=== PATIENT | female | born 1995 | race Caucasian/White ===

== ENCOUNTER 2018-03-15 23:37 | Emergency (ER) | payer OTHER ==
[2018-03-16 00:48] LABS: BASO % 0.4 % (0.0-1.0); EOS # 0.1 10^3/uL (0.0-0.50); EOS % 1.6 % (0.0-3.0); HEMATOCRIT 37.8 % (36.0-47.0); HEMOGLOBIN 11.5 g/dl (12.0-15.5); IMMATURE GRANULOCYTE % 0.1 % (0-3.0); LYMPH # 2.5 10^3/uL (1.5-6.5); MEAN CORPUSCULAR HEMOGLOBIN 23.8 pg (27.0-33.0); MEAN CORPUSCULAR HGB CONC 30.4 g/dl (32.0-36.5); MEAN CORPUSCULAR VOLUME 78.1 fl (80.0-96.0); MONO # 0.9 10^3/uL (0.0-0.8); MONO % 10.7 % (0.0-5.0); NEUTROPHILS # 4.7 10^3/uL (1.8-7.7); NEUTROPHILS % 57.2 % (36.0-66.0); PLATELET COUNT, AUTOMATED 244 10^3/uL (150-450); RED BLOOD COUNT 4.84 10^6/uL (4.00-5.40); RED CELL DISTRIBUTION WIDTH 13.9 % (11.5-14.5); WHITE BLOOD COUNT 8.2 10^3/uL (4.0-10.0)
[2018-03-16 00:52] LABS: CONTROL LINE HCG INT CTR LINE PRESENT; HCG, SERUM QUALITATIVE NEGATIVE (NEGATIVE)
[2018-03-16 01:01] LABS: ALBUMIN 4.6 GM/DL (3.2-5.2); ALBUMIN/GLOBULIN RATIO 1.53 (1.00-1.93); ALKALINE PHOSPHATASE 94 U/L (45-117); ALT/SGPT 26 U/L (12-78); ANION GAP 7 MEQ/L (8-16); AST/SGOT 13 U/L (7-37); BILIRUBIN,TOTAL 0.6 MG/DL (0.2-1.0); BLOOD UREA NITROGEN 8 MG/DL (7-18); CALCIUM LEVEL 9.2 MG/DL (8.5-10.1); CARBON DIOXIDE LEVEL 26 MEQ/L (21-32); CHLORIDE LEVEL 110 MEQ/L (98-107); CREATININE FOR GFR 0.72 MG/DL (0.55-1.30); GLOMERULAR FILTRATION RATE > 60.0 (>60); GLUCOSE, FASTING 95 MG/DL (70-100); POTASSIUM SERUM 4.1 MEQ/L (3.5-5.1); SODIUM LEVEL 143 MEQ/L (136-145); TOTAL PROTEIN 7.6 GM/DL (6.4-8.2)
[2018-03-16 09:00] LABS: HIV 1&2 SCREEN CENTAUR NEGATIVE (NEGATIVE)
[2018-03-16 09:16] LABS: HEPATITIS B SURFACE ANTIBODY NEGATIVE (POSITIVE)
[2018-03-16 09:26] LABS: HEPATITIS B SURFACE ANTIGEN NEGATIVE (NEGATIVE)
== END 2018-03-16 01:13 | disposition home or self-care (01) ==
LOC: M ED 23:37
DX: Z77.21 Contact with and (suspected) exposure to potentially hazardous body fluids (principal); Z79.899 Other long term (current) drug therapy
CPT/HCPCS: 80053

== ENCOUNTER 2018-11-14 09:41 | Emergency (ER) | payer OTHER ==
[~2018-11-14] VITALS: Ht 165.1 cm; Wt 62.3 kg
[~2018-11-14 09:41] MED LIST: RALT40TA PO; TEST200I14 IM; TRUVTAB PO
[2018-11-14 09:42] VITALS: BP 143/65
[2018-11-14] MEDS ORDERED: IBUPROFEN 800 MG TAB PO ONE (10:00)
--- NOTE | 2018-11-14 10:26 | REP ---
Right foot series: Four views. History: Right distal third and fourth metatarsal pain after injury. Findings: Four views of the right foot show overall normal mineralization. There is no evidence of fracture or subluxation. No opaque foreign body is seen. Bones, joints and soft tissues are unremarkable. Impression: Negative radiographs of the foot. Electronically Signed by Mat Galicia MD 11/14/2018 10:18 A
== END 2018-11-14 10:13 | disposition home or self-care (01) ==
LOC: M ED 09:41
DX: S93.621A Sprain of tarsometatarsal ligament of right foot, initial encounter (principal); V86.4 Person injured while boarding or alighting from special all-terrain or other off-road motor vehicle; Y92.138 Other place on military base as the place of occurrence of the external cause; Y99.1 Military activity; E07.9 Disorder of thyroid, unspecified; F41.9 Anxiety disorder, unspecified; Z79.899 Other long term (current) drug therapy